=== PATIENT | female | born 1965 | race Caucasian/White ===

== ENCOUNTER 2019-12-14 14:50 | Emergency (ER) | payer OTHER ==
[~2019-12-14] VITALS: Ht 165.1 cm; Wt 137.9 kg
[~2019-12-14 14:50] MED LIST: ASPIRIN EC81 M1 PO; BYDUREON2 MG SQ; CIPRO500 MG PO; ELIQUIS5 MG PO; FLEXERIL PO; GLUCOTROL XL5 MG PO; HUMALOG100 UNIT/1 SUBQ; HYDROCHLOROTHIA25 M1 PO; HYDROCODONE-AP1 EAC6 PO; LEVEMIR SUBQ; NAPROSYN500 MG PO; PERCOCET 5-3251 EACH PO; XARELTO15 MG PO; XARELTO20 MG PO
[2019-12-14 16:18] LABS: ABSOLUTE BASOPHILS 0.1 thou/uL (0.0-0.2); ABSOLUTE EOSINOPHILS 0.1 thou/uL (0.0-0.7); ABSOLUTE LYMPHOCYTES 1.1 thou/uL (0.8-5.3); ABSOLUTE MONOCYTES 0.6 thou/uL (0.0-1.2); BASOPHILS 1.5 %; EOSINOPHILS 1.5 %; HEMATOCRIT 40.9 % (37.0-47.0); HEMOGLOBIN 13.8 gm/dL (12.0-15.0); LYMPHOCYTES 14.1 %; MCH 32.7 pg (26.0-34.0); MCHC 33.9 g/dL (28.0-37.0); MCV 96.4 fL (80.0-100.0); MONOCYTES 7.1 %; MPV 7.9 fl. (7.2-11.1); NUCLEATED RBCS 0 /100WBC; PLATELET COUNT* 192 thou/uL (150-400); POLYS 75.8 %; RBC 4.24 mil/uL (4.20-5.00); RDW-CV 15.4 % (10.5-14.5); WBC 7.9 thou/uL (4.0-11.0)
[2019-12-14 16:25] LABS: CREATININE 0.9 mg/dL (0.6-1.3); POTASSIUM 4.9 mmol/L (3.5-5.1)
[2019-12-14 16:30] LABS: ALBUMIN 3.4 g/dL (3.4-5.0); APTT 22.2 Seconds (25.0-31.3); PROTIME 10.2 Seconds (9.20-11.50); TOTAL PROTEIN 7.6 g/dL (6.4-8.2)
[2019-12-14] MEDS ORDERED: PREDNISONE 10 M10 MG PO (18:54)
[2019-12-14] MEDS ORDERED: NORCO 5-325 TA1 EAC1 PO (18:54)
[2019-12-14] MEDS ORDERED: BACTRIM DS TAB1 EACH PO (18:54)
[2019-12-14 19:11] VITALS: BP 120/70
--- NOTE | 2019-12-15 12:15 | EKG ---
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 : 1965 Requested By: Yesi Mcgill Order Number: [id number] MD: Ariel To Measurements Intervals [place] Rate: 99 P: 9 IA: 172 QRS: -32 QRSD: 79 T: 0 QT: 320 QTc: 411 Interpretive Statements Sinus rhythm Probable left atrial enlargement Inferior infarct, old Consider anterior infarct Compared to ECG 07/28/2015 10:51:37 Sinus tachycardia no longer present Myocardial infarct finding still present Electronically Signed On 12-15-2019 12:13:17 CDT by Areil To [email or web address] <ELECTRONICALLY SIGNED> By: Ariel To MD, [facility] 12/15/19 1213 1753 1753 Ariel To MD, [facility] /EPI
== END 2019-12-14 19:13 | disposition home or self-care (01) ==
LOC: M.ERS 14:50
PROVIDERS: Nurse Practitioner Family
DX: I80.8 Phlebitis and thrombophlebitis of other sites (principal); E11.9 Type 2 diabetes mellitus without complications

== ENCOUNTER 2019-12-15 21:16 | Emergency (ER) | payer OTHER ==
[~2019-12-15] VITALS: Ht 165.1 cm; Wt 137.4 kg
[~2019-12-15 21:16] MED LIST changes: +BACTRIM DS TAB1 EACH PO; +NORCO 5-325 TA1 EAC1 PO; +PREDNISONE 10 M10 MG PO
[2019-12-15 23:29] LABS: HEMATOCRIT 41.5 % (37.0-47.0); HEMOGLOBIN 14.2 gm/dL (12.0-15.0); MCHC 34.1 g/dL (28.0-37.0); MCV 96.7 fL (80.0-100.0); MPV 8.1 fl. (7.2-11.1); NUCLEATED RBCS 0 /100WBC; PLATELET COUNT* 196 thou/uL (150-400); RDW-CV 15.6 % (10.5-14.5); WBC 9.8 thou/uL (4.0-11.0)
[2019-12-15 23:40] LABS: CALCIUM 9.1 mg/dL (8.5-10.1); CREATININE 1.2 mg/dL (0.6-1.3); POTASSIUM 4.8 mmol/L (3.5-5.1)
[2019-12-15 23:41] LABS: APTT 24.3 Seconds (25.0-31.3); PROTIME 10.5 Seconds (9.20-11.50)
[2019-12-15 23:47] LABS: ALBUMIN 3.5 g/dL (3.4-5.0); TOTAL BILIRUBIN 0.9 mg/dL (<0.1-1.0)
[2019-12-16 01:13] VITALS: BP 125/75
[2019-12-16 01:37] LABS: ABSOLUTE LYMPHOCYTES 0.8 thou/uL (0.8-5.3); ABSOLUTE MONOCYTES 0.6 thou/uL (0.0-1.2); ABSOLUTE NEUTROPHILS 8.4 thou/uL (1.6-8.1); PLATELET ESTIMATE ADEQUATE
[2019-12-16 01:38] LABS: ANISOCYTOSIS 1+
== END 2019-12-16 01:15 | disposition home or self-care (01) ==
LOC: M.ERS 21:16
PROVIDERS: Emergency Medicine Emergency Medical Services
DX: M79.89 Other specified soft tissue disorders (principal); R22.1 Localized swelling, mass and lump, neck; E11.9 Type 2 diabetes mellitus without complications; Z86.718 Personal history of other venous thrombosis and embolism; Z90.710 Acquired absence of both cervix and uterus; Z85.42 Personal history of malignant neoplasm of other parts of uterus; Z79.4 Long term (current) use of insulin

== ENCOUNTER → 2019-12-18 | Outpatient (CLI) | payer OTHER | LOC: M.ULTRA 09:55 | PROVIDERS: ATTEND Registered Nurse Diabetes Educator | DX: R22.9 Localized swelling, mass and lump, unspecified (principal) ==

== ENCOUNTER → 2021-01-27 | Outpatient (CLI) | payer OTHER | LOC: M.ULTRA 07:21 | PROVIDERS: ATTEND Registered Nurse Diabetes Educator | DX: R16.0 Hepatomegaly, not elsewhere classified (principal); K80.20 Calculus of gallbladder without cholecystitis without obstruction; N28.1 Cyst of kidney, acquired ==

== ENCOUNTER 2021-02-21 16:02 | Inpatient (IN) | payer OTHER ==
[~2021-02-21] VITALS: Ht 165.1 cm; Wt 141.3 kg
[2021-02-21 16:17] VITALS: BP 112/56
[2021-02-21] MEDS ORDERED: ELIQUIS5 MG PO (16:20)
[2021-02-21] MEDS ORDERED: OZEMPIC1 MG/0.71 SUBQ (16:20)
[2021-02-21] MEDS ORDERED: VITAMIN D31250 MCG PO (16:20)
[2021-02-21 17:46] LABS: ABSOLUTE LYMPHOCYTES 0.7 thou/uL (0.8-5.3); ABSOLUTE MONOCYTES 0.3 thou/uL (0.0-1.2); ABSOLUTE NEUTROPHILS 2.6 thou/uL (1.6-8.1); BASOPHILS 0.2 %; HEMATOCRIT 38.7 % (37.0-47.0); HEMOGLOBIN 12.9 gm/dL (12.0-15.0); LYMPHOCYTES 19.1 %; MCH 28.8 pg (26.0-34.0); MCHC 33.3 g/dL (28.0-37.0); MCV 86.4 fL (80.0-100.0); MONOCYTES 8.1 %; MPV 8.2 fl. (7.2-11.1); NUCLEATED RBCS 0 /100WBC; PLATELET COUNT* 121 thou/uL (150-400); POLYS 72.6 %; RBC 4.48 mil/uL (4.20-5.00); RDW-CV 14.5 % (10.5-14.5); WBC 3.6 thou/uL (4.0-11.0)
[2021-02-21 17:46] LABS: BE -1.3 mmol/L (-2 to +3); PCO2 32.8 mmHg (35.0-45.0); pH 7.445 (7.340-7.450)
[2021-02-21 17:48] LABS: PO2 56.6 mmHg (75.0-100.0)
[2021-02-21 17:55] LABS: CALCIUM 7.9 mg/dL (8.5-10.1); CREATININE 1.1 mg/dL (0.6-1.3); POTASSIUM 3.8 mmol/L (3.5-5.1)
[2021-02-21 17:59] LABS: ALBUMIN 3.1 g/dL (3.4-5.0); TOTAL BILIRUBIN 0.7 mg/dL (<0.1-1.0); TOTAL PROTEIN 6.7 g/dL (6.4-8.2)
[2021-02-21 22:00] VITALS: BP 115/75
[2021-02-22] VITALS (7 sets, daily range): BP systolic 109–116; BP diastolic 66–78
--- NOTE | 2021-02-22 10:51 | EKG ---
[place] [address] ELECTROCARDIOGRAM REPORT Name: LEONARDARMANI MICHELLE Room: [place] [address] ADM IN [facility]#: [id number] Admission: 02/21/21 Attend Phys: Chapin Santana Discharge: Date of : 61 Date of Service: 02/21/21 174 Report #: [id number] THIS REPORT FOR: //name// [facility] ED Test Date: 2021-02-21 Test Time: 17:41:51 Pat Name: ARMANI VALLE Department: Room: [facility] Gender: F Naval Architect: ILIANA : 1965 Requested By: Sin Galicia Order Number: [id number] MD: Ariel To Measurements Intervals [place] Rate: 101 P: 6 UT: 161 QRS: -45 QRSD: 97 T: 11 QT: 322 QTc: 418 Interpretive Statements Sinus tachycardia Left anterior fascicular block Consider anterior infarct Compared to ECG 12/14/2019 17:53:43 Sinus rhythm no longer present Myocardial infarct finding still present Electronically Signed On 02-22-2021 10:51:13 CDT by Ariel To [email or web address] <ELECTRONICALLY SIGNED> By: Ariel To MD, [facility] 02/22/21 1051 174 174 Ariel To MD, [facility] /EPI
[2021-02-23] VITALS (7 sets, daily range): BP systolic 115–143; BP diastolic 71–83
[2021-02-23 10:16] LABS: HEMATOCRIT 40.5 % (37.0-47.0); HEMOGLOBIN 13.3 gm/dL (12.0-15.0); MCH 28.7 pg (26.0-34.0); MCHC 32.9 g/dL (28.0-37.0); MCV 87.1 fL (80.0-100.0); MPV 8.8 fl. (7.2-11.1); NUCLEATED RBCS 0 /100WBC; PLATELET COUNT* 140 thou/uL (150-400); RBC 4.65 mil/uL (4.20-5.00); RDW-CV 14.4 % (10.5-14.5); WBC 8.3 thou/uL (4.0-11.0)
[2021-02-23 10:29] LABS: CALCIUM 8.7 mg/dL (8.5-10.1); CREATININE 0.8 mg/dL (0.6-1.3); MAGNESIUM 2.5 mg/dL (1.8-2.4); POTASSIUM 4.2 mmol/L (3.5-5.1); TOTAL BILIRUBIN 0.7 mg/dL (<0.1-1.0); TOTAL PROTEIN 6.9 g/dL (6.4-8.2)
[2021-02-23 10:33] LABS: ABSOLUTE LYMPHOCYTES 0.3 thou/uL (0.8-5.3); ABSOLUTE MONOCYTES 0.1 thou/uL (0.0-1.2); ABSOLUTE NEUTROPHILS 7.9 thou/uL (1.6-8.1); PLATELET ESTIMATE DECREASED
[2021-02-23 10:34] LABS: ANISOCYTOSIS 1+; POIKILOCYTOSIS 1+
--- NOTE | 2021-02-23 17:50 | NUR ---
RECEIVED REPORT FROM DHARMESH MASSEY. PT ARRIVED ON UNIT AROUND 1108. ADMIT DONE. VS CHARTED. IV INTACT. HEART MONITOR ATTACHED AT SR. MEDS GIVEN PER SEP. PT ROOM AIR WHILE RESTING. UP IN CHAIR. NO PAIN THIS SHIFT. CALL LIGHT WITH IN REACH. WILL CONTINUE TO MONITOR.
[2021-02-24 00:30] VITALS: BP 122/73
[2021-02-24 04:16] VITALS: BP 131/79
[2021-02-24 07:57] VITALS: BP 137/84
--- NOTE | 2021-02-24 08:05 | NUR ---
PATIENT HAS SLEPT WELL THROUGHOUT MOST OF THE NIGHT. VSS ON 2L 02 VIA NASAL CANNULA. PATIENT PLACED ON OXYGEN D/T LOW OXYGEN SATURATION OF 89% ON RA. PATIENT STATES THAT SHE DOES GET SOA UPON EXERTION. MEDICATIONS GIVEN ORDERED AND CHARTED. PATIENT COUGHING QUITE A BIT THIS AM. REPORT GIVEN TO DAY NURSE NICK REGARDING POSSIBLY GETTING ORDER FOR COUGH SUPPRESSENT/EXPECTORANT FROM DR. PERES IN RIGHT HAND-SL. PATIENT INSTRUCTED TO USE CALL LIGHT WHEN NEEDING ASSISTANCE. HOURLY ROUNDS MADE. WILL CONTINUE WITH PLAN OF CARE AND NURSING TO MONITOR.
[2021-02-24 12:00] VITALS: BP 129/77
--- NOTE | 2021-02-24 13:19 | NUR ---
Pt is A&O. Resides at home with . Independent. No DME. No hx of HH or SNF. Goal is home at dc. Pt on 2L o2, plan ex ox. Pt may dc to home pending ex ox, CM following.
[2021-02-24 16:23] VITALS: BP 149/95
[2021-02-24 17:43] LABS: ABSOLUTE BASOPHILS 0.1 thou/uL (0.0-0.2); ABSOLUTE LYMPHOCYTES 0.4 thou/uL (0.8-5.3); ABSOLUTE MONOCYTES 0.4 thou/uL (0.0-1.2); ABSOLUTE NEUTROPHILS 9.5 thou/uL (1.6-8.1); BASOPHILS 0.6 %; EOSINOPHILS 0.1 %; HEMOGLOBIN 13.6 gm/dL (12.0-15.0); LYMPHOCYTES 3.8 %; MCH 28.9 pg (26.0-34.0); MCHC 33.2 g/dL (28.0-37.0); MCV 86.9 fL (80.0-100.0); MONOCYTES 3.9 %; MPV 8.7 fl. (7.2-11.1); NUCLEATED RBCS 0 /100WBC; PLATELET COUNT* 165 thou/uL (150-400); POLYS 91.6 %; RBC 4.72 mil/uL (4.20-5.00); RDW-CV 14.5 % (10.5-14.5); WBC 10.4 thou/uL (4.0-11.0)
[2021-02-24 18:06] LABS: ALBUMIN 2.9 g/dL (3.4-5.0); CALCIUM 8.9 mg/dL (8.5-10.1); CREATININE 0.8 mg/dL (0.6-1.3); POTASSIUM 4.2 mmol/L (3.5-5.1); TOTAL BILIRUBIN 0.6 mg/dL (<0.1-1.0)
--- NOTE | 2021-02-24 19:12 | NUR ---
RECEIVED REPORT AROUND 0715. ASSUMED CARE. VS AND ASSESSMENT CHARTED. IV INTACT. HEART MONITOR ATTACHED AT SR. MEDS GIVEN PER SEP. HOURLY ROUNDING PERFORMED. PT MOVED FROM 113 TO 116 FOR NEGATIVE PRESSURE. NO PAIN THIS SHIFT. CALL LIGHT WITH IN REACH.
[2021-02-24 20:20] VITALS: BP 142/82
--- NOTE | 2021-02-24 22:39 | CON ---
[address] [address] CONSULTATION Name: ARMANI VALLE Room: [address] IN M.R.#: [id number] Admission: 02/21/21 Attend Phys: Licha Azul Discharge: Date of : 61 Report #: [id number] THIS REPORT FOR: cc: Vidya Jones Tammy RNP Pervez, Adeel MD ~ DATE OF CONSULTATION: 02/24/2021 REQUESTING PHYSICIAN: Chapin Santana MD INDICATION FOR CONSULTATION: Acute hypoxemic respiratory failure secondary to COVID-19. HISTORY OF PRESENT ILLNESS: A 56-year-old female with past medical history as mentioned below. This does include a history of a DVT. She is reported to have had an IVC filter. It is not fully apparent to me as to whether the patient was on Eliquis or aspirin at home. She also does have diabetes. She has not been vaccinated for COVID-19. The patient has had shortness of breath as well as cough for about a week and 5 days ago, she tested positive for COVID-19. She also reported having nausea, fever, chills as well as decreased taste and smell. She says that she was feeling funny when she was standing up. She checked her O2 saturation at home and found it to be 88% and therefore eventually came to the emergency room here. Initially, she was requiring around 2 liters of oxygen to maintain O2 saturation in the low 90s. There is an increase in her oxygen needs. Currently, she is on 15 liters, she is saturating around 95%. She does report increasing shortness of breath as well. She is afebrile. Her body mass index is elevated to 49. REVIEW OF SYSTEMS: For 12 points is negative except as mentioned above. PAST MEDICAL HISTORY: Diabetes, on insulin, DVT, right leg, status post hysterectomy for cancer, lap band surgery, broken left foot/ankle, uterine cancer. SOCIAL HISTORY: Lifetime nonsmoker, uses alcohol, but there is no known history of excessive alcohol use. No known history of illegal drug use. CURRENT MEDICATIONS: List in [place] reviewed. HOME MEDICATIONS: List in [place] reviewed. Also, see discussion above. FAMILY HISTORY: No pertinent [place] [address] CONSULTATION Name: ARMANI VALLE Room: [address]#: [id number] Admission: 02/21/21 Attend Phys: Licha Azul Discharge: Date of : 61 Report #: [id number] ALLERGIES: No known drug allergies. PHYSICAL EXAMINATION: GENERAL: She was alert, awake and oriented, did not appear to be in any distress. VITAL SIGNS: Pulse of 86 and a blood pressure of 149/95, saturating 95%. She is on 15 liters oxygen via nasal cannula. Respiratory rate is 20. She is afebrile. Body mass index is 49. HEENT: Head is normocephalic and atraumatic. Pupils are equal, does appear to have a narrow airway. NECK: Does not show raised JVP asymmetry, mass or lymph nodes. CHEST: Symmetrical expansion on inspection and palpation. On auscultation, breath sounds are bilaterally equal, but decreased. I do not hear any added sounds. HEART: Regular. There is no murmur. ABDOMEN: Soft and nontender. EXTREMITIES: Lower extremities show trace edema, but there is significant chronic venous insufficiency. There are varicose veins noted. Skin, however, is dry and intact. NEUROLOGIC: Moves all extremities bilaterally equally and spontaneously with no focal deficit identified. LABORATORY DATA: The patient's chest x-ray is repeated and it does show worsening in previously seen pulmonary infiltrates. The patient's lab work is in [place] and this is reviewed. ASSESSMENT AND PLAN: 1. Acute hypoxemic respiratory failure secondary to COVID-19. Recommend transferring the patient to a negative pressure room as it appears highly likely that she has obstructive sleep apnea, I would recommend BiPAP while asleep and p.r.n. I will also go ahead and start her on Brovana. The patient was given instructions regarding avoiding sleeping supine, out of bed to chair as tolerated. 2. COVID-19. For now, I kept the dexamethasone dose at 6 mg. We will evaluate response to other measures today. If her oxygen needs increase or fail to improve, then I will be inclined to increase dexamethasone dose later today or tomorrow. Recommend starting remdesivir. I explained risks and benefits of convalescent plasma to the patient. She was reluctant and therefore, I did not insist upon it. The patient likely will benefit from Actemra. Unfortunately, we do not have Actemra available at this time. 3. Pulmonary infiltrates. I would also broaden antibiotic coverage to doxycycline and ceftriaxone. More cultures and serologies are ordered. 4. Fluid overload. I will go ahead and give her one dose of Lasix now and one in the morning and follow response. [address] [address] CONSULTATION Name: ARMANI VALLE Room: [address] IN M.R.#: [id number] Admission: 02/21/21 Attend Phys: Licha Azul Discharge: Date of : 61 Report #: [id number] 5. History of deep venous thrombosis. We will clarify as to whether the patient was on Eliquis at home. She is on Eliquis now. If not on Eliquis at home, then certainly it will be possible that she had thromboembolism now and we will work it up. Meanwhile, she is on Eliquis. We will also do an x-ray of the abdomen to verify that she has an inferior vena cava filter. 6. Morbid obesity/strongly suspected obstructive sleep apnea, see discussion above. 7. Gastrointestinal prophylaxis, on Pepcid. 8. Diabetes. Glucose are on the higher side. May need an increase in insulin sliding scale. I would defer to the primary service. 9. Clostridium difficile prophylaxis, Lactinex. Thanks for this consultation. <ELECTRONICALLY SIGNED> By: Israel Gonzáles MD 02/24/21 2239 1731 Akaterin Gonzáles MD /nt
[2021-02-25 00:35] VITALS: BP 115/70
[2021-02-25 04:54] VITALS: BP 100/67
[2021-02-25 05:31] LABS: CALCIUM 8.7 mg/dL (8.5-10.1); CREATININE 0.9 mg/dL (0.6-1.3); MAGNESIUM 2.2 mg/dL (1.8-2.4); POTASSIUM 3.9 mmol/L (3.5-5.1)
--- NOTE | 2021-02-25 06:43 | NUR ---
PATIENT HAS BEEN RESTLESS OFF AND ON DURING THE NIGHT. VSS ON BIPAP AT 50% FIO2. PATIENT HAS VERBALIZED NOT LIKING TO WEAR THE BIPAP AND WAS REFUSING TO WEAR IT AT TIMES. PATIENT WAS PLACED ON NON REBREATHER AND HIGH FLOW NASAL CANNULA AT 15L BUT 02 SATURATION WAS STILL DIPPING DOWN AT TIMES TO 70'S AND LOW 80'S. PATIENT ENCOURAGED TO WEAR BIPAP AGAIN. PATIENT STATES "I CAN'T DO ANYTHING AND I CAN'T SLEEP". NURSE TALKED TO PATIENT AND EDUCATED HER ON THE USE OF THE BIPAP AND WHY SHE NEEDS TO TRY TO WEAR IT. PATIENT UP WITH SBA TO THE BSC AND GETS VERY SOA UPON EXERTION. PATIENT GIVEN MEDICATION FOR ANXIETY THIS AM AND PLACE BACK ON BIPAP. IV IN RIGHT HAND-SL. PATIENT INSTRUCTED TO USE CALL LIGHT WHEN NEEDING ASSISTANCE. HOURLY ROUNDS MADE. WILL CONTINUE WITH PLAN OF CARE AND NURSING TO MONITOR.
[2021-02-25 08:00] VITALS: BP 107/72
--- NOTE | 2021-02-25 13:55 | NUR ---
Nutrition: Pt admitted to COVID unit. Assessed for high BMI. Wt: 294#. CHO controlled diet. PMHx: DM, OBE. Pt gets SOA upon exertion. Meds: remdesivir, vit D, C, B1, albuterol. BG 226-303, alb 2.9. No meal intake % recorded. Pt doesn't like bipap, but desats when off it. Consider mild nutrition risk at this time. Please reocrd meal intake %.
--- NOTE | 2021-02-25 15:16 | NUR ---
Anticipate dc in a few days. Covid positive. Remains on bipap.
[2021-02-25 16:31] VITALS: BP 120/71
--- NOTE | 2021-02-25 18:38 | NUR ---
RECEIVED REPORT AROUND 0715. ASSUMED CARE. VS AND ASSESSMENT CHARTED. IV INTACT RIGHT HAND. HEART MONITOR ATTACHED AT SR. MEDS GIVEN PER SEP. HOURLY ROUNDING PERFORMED. ISOLATION INTACT. BIPAP TOLERATED. HEATED HI FLOW DURING MEALS. NO PAIN THIS SHIFT. CALL LIGHT WITH IN REACH. WILL CONTINUE TO MONITOR.
[2021-02-25 20:15] VITALS: BP 97/62
[2021-02-26 00:05] VITALS: BP 101/64
[2021-02-26 03:58] VITALS: BP 103/66
[2021-02-26 04:33] LABS: ABSOLUTE LYMPHOCYTES 0.4 thou/uL (0.8-5.3); ABSOLUTE MONOCYTES 0.3 thou/uL (0.0-1.2); ABSOLUTE NEUTROPHILS 5.3 thou/uL (1.6-8.1); BASOPHILS 0.2 %; HEMATOCRIT 41.6 % (37.0-47.0); HEMOGLOBIN 13.7 gm/dL (12.0-15.0); LYMPHOCYTES 6.6 %; MCH 28.5 pg (26.0-34.0); MCHC 32.8 g/dL (28.0-37.0); MCV 86.9 fL (80.0-100.0); MONOCYTES 5.4 %; MPV 8.8 fl. (7.2-11.1); NUCLEATED RBCS 0 /100WBC; PLATELET COUNT* 175 thou/uL (150-400); POLYS 87.8 %; RBC 4.79 mil/uL (4.20-5.00); RDW-CV 14.5 % (10.5-14.5); WBC 6.1 thou/uL (4.0-11.0)
[2021-02-26 04:52] LABS: ALBUMIN 2.6 g/dL (3.4-5.0); CALCIUM 8.7 mg/dL (8.5-10.1); CREATININE 0.9 mg/dL (0.6-1.3); MAGNESIUM 2.2 mg/dL (1.8-2.4); POTASSIUM 4.3 mmol/L (3.5-5.1); TOTAL BILIRUBIN 0.5 mg/dL (<0.1-1.0); TOTAL PROTEIN 6.8 g/dL (6.4-8.2)
--- NOTE | 2021-02-26 07:09 | NUR ---
PT SLEPT FAIRLY WELL OVERNIGHT. TOLERATED BIPAP WELL AND HAS WORN IT ALL NIGHT. HS ACCUCHECK 311, INSULIN GIVEN ORDERED. AM LABS. MRSA NASAL SWAB SENT TO LAB OVERNIGHT. R HAND SL.TAKES PILLS ONE AT A TIME REMOVING BIPAP BRIEFLY. ABLE TO USE CALL LITE AND MAKE NEEDS KNOWN.
[2021-02-26 07:30] VITALS: BP 113/80
[2021-02-26 13:18] VITALS: BP 97/64
--- NOTE | 2021-02-26 15:01 | NUR ---
No weekend dc planned. On bipap 15L 90% fio2.
[2021-02-26 16:00] VITALS: BP 96/68
--- NOTE | 2021-02-26 16:31 | NUR ---
PT REMAINED ALERT AND ORIENTED. PT ABLE TO TOLERATE HEATED HIGH FLOW FOR 3 HOURS DURING SHIFT BEFORE NEEDING TO GO BACK ON BIPAP. FALL RISK PRECAUTIONS IN PLACE. HOURLY ROUNDING COMPLETED. CALL LIGHT WITHIN REACH.
[2021-02-26 20:00] VITALS: BP 94/61
[2021-02-27 00:12] VITALS: BP 135/78
[2021-02-27 04:25] VITALS: BP 101/61
[2021-02-27 05:00] LABS: ABSOLUTE LYMPHOCYTES 0.6 thou/uL (0.8-5.3); ABSOLUTE MONOCYTES 0.5 thou/uL (0.0-1.2); ABSOLUTE NEUTROPHILS 7.8 thou/uL (1.6-8.1); BASOPHILS 0.2 %; HEMATOCRIT 42.3 % (37.0-47.0); HEMOGLOBIN 13.9 gm/dL (12.0-15.0); LYMPHOCYTES 6.6 %; MCH 28.6 pg (26.0-34.0); MCV 86.6 fL (80.0-100.0); MONOCYTES 5.8 %; MPV 8.9 fl. (7.2-11.1); NUCLEATED RBCS 0 /100WBC; PLATELET COUNT* 224 thou/uL (150-400); POLYS 87.4 %; RBC 4.88 mil/uL (4.20-5.00); RDW-CV 14.3 % (10.5-14.5); WBC 8.9 thou/uL (4.0-11.0)
--- NOTE | 2021-02-27 05:21 | NUR ---
ASSUMED PT CARE AT APPROX 1930. PT IS AWAKE AND ORIENTED X4. PT IS TRACING SR ON THE PATTERN WHEEL MAKER. PT IS ON THE BIPAP WITH 90% FIO2, NO DESATURATIONS NOTED. PT DENIES PAIN BUT IS ANXIOUS, ANXIETY MEDICINE GIVEN PER MAR. PT IS ABLE TO REST MOST OF THE NIGHT. NO ACUTE CHANGES THIS SHIFT. CALL LIGHT WITHIN REACH. HOURLY ROUNDING DONE FOR PT SAFETY.
[2021-02-27 05:24] LABS: ALBUMIN 2.7 g/dL (3.4-5.0); CALCIUM 8.9 mg/dL (8.5-10.1); MAGNESIUM 2.3 mg/dL (1.8-2.4); TOTAL BILIRUBIN 0.6 mg/dL (<0.1-1.0); TOTAL PROTEIN 6.9 g/dL (6.4-8.2)
[2021-02-27 08:11] VITALS: BP 93/63
[2021-02-27 12:13] VITALS: BP 124/78
[2021-02-27 16:37] VITALS: BP 139/79
--- NOTE | 2021-02-27 18:11 | NUR ---
PT A/OX4, ON BIPAP AND HEATED HI-FLOW THIS SHIFT, HR NSR ON TELE. PT HAS BEEN UP IN HER RECLINER MOST OF THE SHIFT, EDUCATED ON USING THE INCENTIVE SPIROMETER AND DEEP BREATHING.
[2021-02-27 20:00] VITALS: BP 122/74
[2021-02-28 00:33] VITALS: BP 104/62
[2021-02-28 04:00] VITALS: BP 89/50
--- NOTE | 2021-02-28 05:04 | NUR ---
ASSUMED PT CARE AT APPROX 1911. PT IS AWAKE AND ORIENTED X4. PT IS TRACING SR/SB ON THE LACTATION SPECIALIST. PT IS SHORT OF AIR WITH ACTIVITY, spO2 IS BETWEEN 95-100% ON THE BIPAP/ FIO2 100%. NO ACUTE CHANGES THIS SHIFT. PT IS ENCOURAGED TO DO DEEP BREATHING EXCERCISES AND TO LAY ON HER SIDE/PRONE TOLERATED. CALL LIGHT WITHIN REACH. PT IS CLOSELY MONITORED, FALL PRECAUTIONS IN PLACE.
[2021-02-28 08:55] VITALS: BP 89/60
[2021-02-28 10:11] LABS: CALCIUM 8.6 mg/dL (8.5-10.1); CREATININE 0.8 mg/dL (0.6-1.3)
[2021-02-28 12:00] VITALS: BP 106/64
[2021-02-28 16:00] VITALS: BP 100/63
--- NOTE | 2021-02-28 19:17 | NUR ---
PT A/0X4, HR NSR, ON BIPAP, VSS, NO C/O PAIN OR DISCOMFORT VOICED THIS SHIFT, PT HAD A LARGE BM, UP TO BSC SBA.
[2021-02-28 20:00] VITALS: BP 103/72
[2021-03-01] VITALS: BP 139/72
[2021-03-01 04:00] VITALS: BP 102/64
[2021-03-01 04:31] LABS: ALBUMIN 2.3 g/dL (3.4-5.0); CALCIUM 8.4 mg/dL (8.5-10.1); CREATININE 0.9 mg/dL (0.6-1.3); TOTAL BILIRUBIN 0.5 mg/dL (<0.1-1.0)
--- NOTE | 2021-03-01 05:45 | NUR ---
ASSUMED PT CARE AT APPROX 1911. PT IS AWAKE AND ORIENTED X4. PT IS TRACING SR/SB ON THE TRUCK CAR AND BUS CLEANER. PT IS SHORT OF AIR WITH ACTIVITY, spO2 IS BETWEEN 95-100% ON THE BIPAP/ FIO2 100%. NO ACUTE CHANGES THIS SHIFT. PT IS ENCOURAGED TO DO DEEP BREATHING EXCERCISES AND TO LAY ON HER SIDE/PRONE TOLERATED. CALL LIGHT WITHIN REACH. PT IS CLOSELY MONITORED, FALL PRECAUTIONS IN PLACE.
[2021-03-01 08:00] VITALS: BP 89/61
[2021-03-01 12:00] VITALS: BP 93/65
--- NOTE | 2021-03-01 14:37 | NUR ---
Pt on bipap 100%, continue aggressive care
[2021-03-01 16:13] VITALS: BP 121/76
[2021-03-01 20:00] VITALS: BP 125/80
[2021-03-02 00:45] VITALS: BP 137/76
--- NOTE | 2021-03-02 04:31 | NUR ---
ASSUMED PT CARE AT APPROX. 1930. PT IS A/OX4. PT IS TRACING SR ON RN EMPLOYEE [employer]. VSS. PT ON BIPAP, SEE DOCUMENTATION FOR SETTINGS. NO ACUTE CHANGES THIS SHIFT. MEDICATIONS ADMINISTERED PRESCRIBED. FALL PRECAUTIONS IN PLACE FOR SAFETY. CALL LIGHT WITHIN REACH. WILL CONT. TO MONITOR.
[2021-03-02 05:12] VITALS: BP 106/58
[2021-03-02 08:00] VITALS: BP 97/65
[2021-03-02 08:46] LABS: HEMATOCRIT 41.1 % (37.0-47.0); HEMOGLOBIN 13.7 gm/dL (12.0-15.0); MCH 28.7 pg (26.0-34.0); MCHC 33.3 g/dL (28.0-37.0); MCV 86.3 fL (80.0-100.0); MPV 8.9 fl. (7.2-11.1); NUCLEATED RBCS 0 /100WBC; PLATELET COUNT* 184 thou/uL (150-400); RBC 4.76 mil/uL (4.20-5.00); RDW-CV 14.3 % (10.5-14.5); WBC 14.1 thou/uL (4.0-11.0)
[2021-03-02 09:02] LABS: ALBUMIN 2.4 g/dL (3.4-5.0); CALCIUM 8.7 mg/dL (8.5-10.1); CREATININE 0.9 mg/dL (0.6-1.3); MAGNESIUM 2.4 mg/dL (1.8-2.4); PHOSPHORUS* 3.4 mg/dL (2.5-4.9); POTASSIUM 3.9 mmol/L (3.5-5.1); TOTAL BILIRUBIN 0.7 mg/dL (<0.1-1.0); TOTAL PROTEIN 6.5 g/dL (6.4-8.2)
[2021-03-02 09:26] LABS: ABSOLUTE LYMPHOCYTES 0.4 thou/uL (0.8-5.3); ABSOLUTE MONOCYTES 0.7 thou/uL (0.0-1.2)
[2021-03-02 09:27] LABS: PLATELET ESTIMATE ADEQUATE
--- NOTE | 2021-03-02 10:50 | NUR ---
The patient is alert. Able to make needs known. Denies CP or SOb. She is sitting on the side of the bed. She has the bipap in place.
[2021-03-02 11:12] VITALS: BP 113/75
--- NOTE | 2021-03-02 14:01 | NUR ---
Pt remains ill. On 55L 80% fio2, continue to wean
[2021-03-02 15:43] VITALS: BP 135/76
[2021-03-02 22:30] VITALS: BP 107/69
[2021-03-03 04:28] VITALS: BP 135/66
[2021-03-03 08:00] VITALS: BP 110/69
--- NOTE | 2021-03-03 11:36 | NUR ---
The patient is alert. Denies CP or SOB. She is sitting in the recliner. She remains on the Bipap. Call light within reach. SR on the monitor. The patient is ad miguel angel to the BSC.
[2021-03-03 12:00] VITALS: BP 119/81
--- NOTE | 2021-03-03 15:29 | NUR ---
Anticipate dc in a few days. Pt on bipap 100% fio2
[2021-03-03 16:09] LABS: ABSOLUTE BASOPHILS 0.1 thou/uL (0.0-0.2); ABSOLUTE LYMPHOCYTES 0.4 thou/uL (0.8-5.3); ABSOLUTE MONOCYTES 0.6 thou/uL (0.0-1.2); ABSOLUTE NEUTROPHILS 16.3 thou/uL (1.6-8.1); BASOPHILS 0.7 %; EOSINOPHILS 0.1 %; HEMATOCRIT 41.9 % (37.0-47.0); HEMOGLOBIN 13.6 gm/dL (12.0-15.0); LYMPHOCYTES 2.1 %; MCH 28.5 pg (26.0-34.0); MCHC 32.4 g/dL (28.0-37.0); MCV 87.9 fL (80.0-100.0); MONOCYTES 3.6 %; NUCLEATED RBCS 0 /100WBC; PLATELET COUNT* 174 thou/uL (150-400); POLYS 93.5 %; RBC 4.77 mil/uL (4.20-5.00); RDW-CV 14.6 % (10.5-14.5); WBC 17.4 thou/uL (4.0-11.0)
[2021-03-03 16:18] LABS: CALCIUM 8.9 mg/dL (8.5-10.1); CREATININE 0.9 mg/dL (0.6-1.3); MAGNESIUM 2.5 mg/dL (1.8-2.4); POTASSIUM 3.9 mmol/L (3.5-5.1)
[2021-03-03 16:26] VITALS: BP 123/67
[2021-03-03 17:48] VITALS: BP 118/73
[2021-03-03 19:45] VITALS: BP 132/84
[2021-03-04] VITALS: BP 150/87
[2021-03-04 04:00] VITALS: BP 116/67
[2021-03-04 04:51] LABS: HEMATOCRIT 43.6 % (37.0-47.0); MCH 28.2 pg (26.0-34.0); MCHC 32.2 g/dL (28.0-37.0); MCV 87.7 fL (80.0-100.0); RBC 4.98 mil/uL (4.20-5.00); RDW-CV 14.7 % (10.5-14.5)
--- NOTE | 2021-03-04 05:04 | NUR ---
ASSUMED CARE OF PT AT 1900. PT IS ALERT AND ORIENED. VSS. PERRLA. PT IS ON 100 PERCENT BIPAP. SPO2 HAS BEEN LOW. PT WAS GIVEN STEROIDS AND LASIX. PT ALSO LAYING PRONE. SPO2 ABOVE 90 PERCENT AT THIS TIME. PT IS IN SINUS RYTHM ON THE TELEMETRY. PT IS RESTING COMFORTABLY IN BED. RESPIRATIONS ARE EVEN AND NONLABORED. WILL CONTINUE TO MONITOR PT.
[2021-03-04 05:25] LABS: ALBUMIN 2.9 g/dL (3.4-5.0); CALCIUM 8.9 mg/dL (8.5-10.1); CREATININE 0.9 mg/dL (0.6-1.3); MAGNESIUM 2.3 mg/dL (1.8-2.4); POTASSIUM 3.3 mmol/L (3.5-5.1); TOTAL BILIRUBIN 0.7 mg/dL (<0.1-1.0); TOTAL PROTEIN 6.8 g/dL (6.4-8.2)
[2021-03-04 08:00] VITALS: BP 103/64
[2021-03-04 12:00] VITALS: BP 97/65
--- NOTE | 2021-03-04 14:01 | NUR ---
The patient is alert. Able to make needs known. Denies SOB or CP. The patient was unable to take the potassium tablets and wanted infused via IV. The patient is on the bipap and sits on the side of the bed to eat. She lays on her side when in the bed.
[2021-03-04 14:22] LABS: BE 4.1 mmol/L (-2 to +3); PCO2 38.3 mmHg (35.0-45.0); pH 7.478 (7.340-7.450)
[2021-03-04 14:25] LABS: PO2 55.5 mmHg (75.0-100.0)
--- NOTE | 2021-03-04 14:54 | NUR ---
Pt will be inpt for several more days. On bipap 100% fio2
[2021-03-04 15:56] VITALS: BP 136/80
--- NOTE | 2021-03-04 16:20 | NUR ---
Infection Prevention: Per [facility] the patient had a positive Covid PCR test on 02/16/21.
[2021-03-04 19:30] LABS: CALCIUM 9.1 mg/dL (8.5-10.1); CREATININE 1.1 mg/dL (0.6-1.3); POTASSIUM 4.1 mmol/L (3.5-5.1)
[2021-03-04 19:45] VITALS: BP 129/77
[2021-03-05] VITALS (17 sets, daily range): BP systolic 85–134; BP diastolic 50–75
--- NOTE | 2021-03-05 00:55 | NUR ---
AT START OF SHIFT PT WAS SATTING IN LOW 80s UPPER 70s, SHE WAS LYING IN BED IN A POSITION. I LOWERED HOB AND REQUESTED PT TO STRETCH OUT TO GET MORE OXYGEN. SHE WAS ON BIPAP. PT MOVED UP BUT ON HER RT SIDE STILL CURLED UP. RT TRIED TO GET PT TO ROLL TO BACK AND STRETCH OUT BUT SHE REFUSED WITH SATS STILL IN LOW 80s. RT REQUESTED I CALL RACHEL CHAVEZ TO SEE WHAT HIS LOW LIMIT ON SAT WAS BEFORE INTUBATION. DR PEREZ PAGED AND RETURNED CALL, STATING TO TRY TO GET PT INTO RECLINER AND SIT HER UPRIGHT TO SEE IF THIS WOULD HELP IMPROVE SATS. 40 ADDITIONAL LASIX ADMINISTERED AND PT SATS WERE IMPROVED TO HIGH 80s AND LOW 90s.
--- NOTE | 2021-03-05 09:42 | NUR ---
PT INTUBATED AT [address] SUMENR (ANESTHESIOLOGIST); ETOMIDATE 10MG AND ROCURONIUM 50MG GIVEN FOR SEDATION. 7.5 ETT TAPED 23CM AT THE LIP. POSITIVE COLOR CHANGE ON CO2 DETECTOR IMMEDIATELY FOLLOWING TUBE PLACEMENT. LUNG SOUNDS AUSCULTATED BILATERALLY. OG TUBE PLACED, TAPED TO ETT AT 52CM. AUSCULTATION OF AIR FLOW INTO STOMACH, POSITIVE GASTRIC CONTENTS ASPIRATED.
[2021-03-05 10:11] LABS: BE 1.7 mmol/L (-2 to +3); PCO2 38.4 mmHg (35.0-45.0); PO2 76.6 mmHg (75.0-100.0); pH 7.443 (7.340-7.450)
[2021-03-05 10:48] LABS: ABSOLUTE BASOPHILS 0.1 thou/uL (0.0-0.2); ABSOLUTE LYMPHOCYTES 0.4 thou/uL (0.8-5.3); ABSOLUTE NEUTROPHILS 16.3 thou/uL (1.6-8.1); BASOPHILS 0.4 %; HEMATOCRIT 42.8 % (37.0-47.0); HEMOGLOBIN 13.9 gm/dL (12.0-15.0); LYMPHOCYTES 2.4 %; MCH 28.4 pg (26.0-34.0); MCHC 32.4 g/dL (28.0-37.0); MCV 87.6 fL (80.0-100.0); MONOCYTES 5.4 %; NUCLEATED RBCS 0 /100WBC; PLATELET COUNT* 133 thou/uL (150-400); POLYS 91.8 %; RBC 4.89 mil/uL (4.20-5.00); RDW-CV 14.6 % (10.5-14.5); WBC 17.8 thou/uL (4.0-11.0)
[2021-03-05 11:01] LABS: ALBUMIN 3.1 g/dL (3.4-5.0); CALCIUM 8.8 mg/dL (8.5-10.1); TOTAL PROTEIN 6.7 g/dL (6.4-8.2)
--- NOTE | 2021-03-05 15:06 | NUR ---
Pt intubated and moved to the PACU
[2021-03-05 15:16] LABS: BE 3.2 mmol/L (-2 to +3); PO2 69.1 mmHg (75.0-100.0); pH 7.398 (7.340-7.450)
--- NOTE | 2021-03-05 16:27 | NUR ---
Remains on ventilator, pressure control of 24, rate of 22, Peep of 14, 100% fio2. on far left side with wedge and pillows to suppport. BP has remained stable throughout the day with fentanyl at 50mg/hr and Versed at 3mg per hour. UO has increased since Lasix 6mg given. Had an episode of sao2 decreasing to mid 80's for approxiamately 10 minutes. NT suctioned with minimal secretions. RT notified, Peep increased to 15 and turned to right side. sao2 recovering to low 90's.
[2021-03-05 18:04] LABS: BE 5.9 mmol/L (-2 to +3); PCO2 42.4 mmHg (35.0-45.0); PO2 73.5 mmHg (75.0-100.0); pH 7.471 (7.340-7.450)
[2021-03-06] VITALS (82 sets, daily range): BP systolic 91–186; BP diastolic 54–95
[2021-03-06 05:59] LABS: HEMATOCRIT 41.6 % (37.0-47.0); HEMOGLOBIN 13.8 gm/dL (12.0-15.0); MCH 28.8 pg (26.0-34.0); MCHC 33.1 g/dL (28.0-37.0); MCV 87.2 fL (80.0-100.0); MPV 9.5 fl. (7.2-11.1); NUCLEATED RBCS 0 /100WBC; PLATELET COUNT* 146 thou/uL (150-400); RBC 4.77 mil/uL (4.20-5.00); RDW-CV 14.6 % (10.5-14.5); WBC 17.7 thou/uL (4.0-11.0)
[2021-03-06 06:18] LABS: APTT 28.1 Seconds (25.0-31.3); INR 1.4
[2021-03-06 06:21] LABS: ALBUMIN 2.8 g/dL (3.4-5.0); CALCIUM 8.6 mg/dL (8.5-10.1); MAGNESIUM 2.6 mg/dL (1.8-2.4); POTASSIUM 4.2 mmol/L (3.5-5.1); TOTAL BILIRUBIN 0.9 mg/dL (<0.1-1.0); TOTAL PROTEIN 6.3 g/dL (6.4-8.2)
[2021-03-06 06:27] LABS: PHOSPHORUS* 4.5 mg/dL (2.5-4.9)
[2021-03-06 07:33] LABS: BE 0.8 mmol/L (-2 to +3); PCO2 35.4 mmHg (35.0-45.0); PO2 76.8 mmHg (75.0-100.0); pH 7.454 (7.340-7.450)
[2021-03-06 08:13] LABS: ABSOLUTE LYMPHOCYTES 0.4 thou/uL (0.8-5.3); ABSOLUTE MONOCYTES 0.7 thou/uL (0.0-1.2); ABSOLUTE NEUTROPHILS 16.6 thou/uL (1.6-8.1); PLATELET ESTIMATE DECREASED
--- NOTE | 2021-03-06 08:16 | NUR ---
ASSUMED PATIENT CARE AT 1900. ASSESSMENTS COMPLETED CHARTED. CARDIAC MONITORING IN PLACE. PATIENT HAS SUBCUTANEOUS EMPHYSEMA IN THE UPPER CHEST BLIATERALLY. THE EMPHYSEMA APPEARED LARGER WHEN REASSESSED DURING THE MIDNIGHT ROUNDS. PATIENT O2 SATURATION AND BLOOD PRESSURE STABLE. CHEST XRAY ORDERED AND OBTAINED. DR. PEREZ NOTIFIED, NO NEW ORDERS RECEIVED BUT ORDERED TO INFORM SURGERY. SURGERY INFORMED. AWAITING NEW ORDERS. WILL CONTINUE TO MONITOR.
[2021-03-06 15:29] LABS: BE 1.9 mmol/L (-2 to +3); PCO2 45.8 mmHg (35.0-45.0); PO2 60.3 mmHg (75.0-100.0); pH 7.394 (7.340-7.450)
[2021-03-06 17:24] LABS: CALCIUM 8.9 mg/dL (8.5-10.1); CREATININE 1.1 mg/dL (0.6-1.3); MAGNESIUM 2.7 mg/dL (1.8-2.4); POTASSIUM 4.1 mmol/L (3.5-5.1)
[2021-03-06 18:35] LABS: BE 4.4 mmol/L (-2 to +3); PO2 61.6 mmHg (75.0-100.0); pH 7.407 (7.340-7.450)
[2021-03-07] VITALS (64 sets, daily range): BP systolic 80–206; BP diastolic 42–90
[2021-03-07 05:04] LABS: ABSOLUTE LYMPHOCYTES 0.4 thou/uL (0.8-5.3); ABSOLUTE MONOCYTES 0.8 thou/uL (0.0-1.2); ABSOLUTE NEUTROPHILS 14.9 thou/uL (1.6-8.1); HEMATOCRIT 41.1 % (37.0-47.0); HEMOGLOBIN 13.2 gm/dL (12.0-15.0); LYMPHOCYTES 2.3 %; MCH 28.8 pg (26.0-34.0); MCHC 32.1 g/dL (28.0-37.0); MCV 89.6 fL (80.0-100.0); MONOCYTES 4.9 %; MPV 9.4 fl. (7.2-11.1); NUCLEATED RBCS 0 /100WBC; PLATELET COUNT* 104 thou/uL (150-400); POLYS 92.8 %; RBC 4.59 mil/uL (4.20-5.00); RDW-CV 14.6 % (10.5-14.5); WBC 16.1 thou/uL (4.0-11.0)
[2021-03-07 05:12] LABS: BE 0.2 mmol/L (-2 to +3)
[2021-03-07 05:15] LABS: PCO2 89.9 mmHg (35.0-45.0); pH 7.166 (7.340-7.450)
[2021-03-07 05:31] LABS: ALBUMIN 3.2 g/dL (3.4-5.0); CALCIUM 8.5 mg/dL (8.5-10.1); CREATININE 1.2 mg/dL (0.6-1.3); MAGNESIUM 2.8 mg/dL (1.8-2.4); POTASSIUM 4.5 mmol/L (3.5-5.1); TOTAL BILIRUBIN 0.9 mg/dL (<0.1-1.0); TOTAL PROTEIN 6.4 g/dL (6.4-8.2)
--- NOTE | 2021-03-07 09:06 | EKG ---
[place] [address] ELECTROCARDIOGRAM REPORT Name: VALLEARMANI VIVIANA Room: [address] ADM IN .R.#: [id number] Admission: 02/21/21 Attend Phys: Chapin Santana Discharge: Date of : 61 Date of Service: 03/06/21 2316 Report #: [id number] THIS REPORT FOR: //name// [facility] Test Date: 2021-03-06 Test Time: 23:16:56 Pat Name: ARMANI VALLE Department: Room: [address] Gender: F Record Label Internship: MANDA : 1965 Requested By: Israel Gonzáles Order Number: [id number] Sherie MD: Ariel To Measurements Intervals [place] Rate: 45 P: 6 CA: 164 QRS: -26 QRSD: 105 T: -26 QT: 520 QTc: 450 Interpretive Statements Sinus bradycardia Probable anterior infarct, age indeterminate Lateral leads are also involved Compared to ECG 02/21/2021 17:41:51 Sinus tachycardia no longer present Left anterior fascicular block no longer present Myocardial infarct finding still present Electronically Signed On 03-07-2021 9:06:14 CDT by Ariel To [email or web address] <ELECTRONICALLY SIGNED> By: Ariel To MD, [facility] 03/07/21905 15 15 Ariel To MD, [facility] /EPI
[2021-03-07 13:22] LABS: pH 7.329 (7.340-7.450)
[2021-03-07 13:26] LABS: PCO2 59.3 mmHg (35.0-45.0)
[2021-03-08] VITALS (48 sets, daily range): BP systolic 91–136; BP diastolic 40–67
[2021-03-08 05:27] LABS: HEMATOCRIT 36.8 % (37.0-47.0); MCH 28.8 pg (26.0-34.0); MCHC 32.6 g/dL (28.0-37.0); MCV 88.4 fL (80.0-100.0); MPV 9.7 fl. (7.2-11.1); NUCLEATED RBCS 0 /100WBC; PLATELET COUNT* 86 thou/uL (150-400); RBC 4.16 mil/uL (4.20-5.00); RDW-CV 14.4 % (10.5-14.5); WBC 13.6 thou/uL (4.0-11.0)
[2021-03-08 05:52] LABS: ALBUMIN 3.1 g/dL (3.4-5.0); CALCIUM 8.4 mg/dL (8.5-10.1); CREATININE 1.2 mg/dL (0.6-1.3); MAGNESIUM 2.8 mg/dL (1.8-2.4); POTASSIUM 4.6 mmol/L (3.5-5.1); TOTAL BILIRUBIN 0.7 mg/dL (<0.1-1.0)
[2021-03-08 06:22] LABS: ABSOLUTE LYMPHOCYTES 0.3 thou/uL (0.8-5.3); ABSOLUTE MONOCYTES 1.1 thou/uL (0.0-1.2); ABSOLUTE NEUTROPHILS 12.2 thou/uL (1.6-8.1); ANISOCYTOSIS 1+; PLATELET ESTIMATE DECREASED; POIKILOCYTOSIS 1+
[2021-03-08 08:09] LABS: BE 7.3 mmol/L (-2 to +3); PO2 60.1 mmHg (75.0-100.0); pH 7.422 (7.340-7.450)
[2021-03-08 08:18] LABS: PCO2 52.1 mmHg (35.0-45.0)
--- NOTE | 2021-03-08 13:26 | NUR ---
ICU ROUNDS: PROGNOSIS IS POOR. PT ON 100 % FIO2. PEEP 11. SEDATED. LASIX. TUBE FEEDING, CXR AND ABDOMEN XRAY NEEDED D/T "TUBE CAME OUT."
[2021-03-08 14:14] LABS: BE 6.2 mmol/L (-2 to +3); PCO2 47.3 mmHg (35.0-45.0); pH 7.439 (7.340-7.450)
[2021-03-08 14:16] LABS: PO2 58.1 mmHg (75.0-100.0)
[2021-03-09] VITALS (39 sets, daily range): BP systolic 65–157; BP diastolic 34–78
[2021-03-09 05:56] LABS: MPV 9.4 fl. (7.2-11.1); NUCLEATED RBCS 0 /100WBC; WBC 9.4 thou/uL (4.0-11.0)
[2021-03-09 05:58] LABS: ABSOLUTE LYMPHOCYTES 0.4 thou/uL (0.8-5.3); ABSOLUTE MONOCYTES 0.4 thou/uL (0.0-1.2); ABSOLUTE NEUTROPHILS 8.5 thou/uL (1.6-8.1); BASOPHILS 0.5 %; EOSINOPHILS 0.1 %; HEMATOCRIT 35.8 % (37.0-47.0); HEMOGLOBIN 11.6 gm/dL (12.0-15.0); LYMPHOCYTES 3.8 %; MCH 28.7 pg (26.0-34.0); MCHC 32.3 g/dL (28.0-37.0); MCV 88.8 fL (80.0-100.0); MONOCYTES 4.7 %; PLATELET COUNT* 67 thou/uL (150-400); POLYS 90.9 %; RBC 4.03 mil/uL (4.20-5.00); RDW-CV 14.1 % (10.5-14.5)
[2021-03-09 06:15] LABS: ALBUMIN 3.3 g/dL (3.4-5.0); CALCIUM 8.5 mg/dL (8.5-10.1); CREATININE 1.1 mg/dL (0.6-1.3); MAGNESIUM 2.7 mg/dL (1.8-2.4); PHOSPHORUS* 4.3 mg/dL (2.5-4.9); POTASSIUM 4.7 mmol/L (3.5-5.1); TOTAL BILIRUBIN 0.7 mg/dL (<0.1-1.0); TOTAL PROTEIN 6.2 g/dL (6.4-8.2)
[2021-03-09 07:29] LABS: BE 6.5 mmol/L (-2 to +3); PCO2 44.1 mmHg (35.0-45.0); pH 7.465 (7.340-7.450)
[2021-03-09 07:32] LABS: PO2 49.3 mmHg (75.0-100.0)
--- NOTE | 2021-03-09 11:53 | NUR ---
RIGHT CHEST TUBE TO WATERSEAL PER ORDERS. PATIENT IS CURRENTLY WITH SATS IN THE LOW TO MID 80'S. DR PEREZ IS AWARE. FAMILY UPDATED. NO FURTHER CONCERNS ATTHIS TIME. ISOLATION DISCONTINUED PER ID NURSE. WILL CONTINUE TO MONITOR AND CARE PER PLAN OF CARE.
[2021-03-09 14:07] LABS: CALCIUM 8.9 mg/dL (8.5-10.1); CREATININE 1.3 mg/dL (0.6-1.3); POTASSIUM 4.8 mmol/L (3.5-5.1)
[2021-03-09 15:25] LABS: BE 6.8 mmol/L (-2 to +3); PO2 87.7 mmHg (75.0-100.0)
[2021-03-09 15:31] LABS: PCO2 72.5 mmHg (35.0-45.0)
[2021-03-10] VITALS (86 sets, daily range): BP systolic 77–206; BP diastolic 44–78
[2021-03-10 05:32] LABS: ABSOLUTE BASOPHILS 0.1 thou/uL (0.0-0.2); ABSOLUTE LYMPHOCYTES 0.3 thou/uL (0.8-5.3); ABSOLUTE MONOCYTES 0.9 thou/uL (0.0-1.2); BASOPHILS 0.4 %; HEMATOCRIT 39.3 % (37.0-47.0); HEMOGLOBIN 12.7 gm/dL (12.0-15.0); LYMPHOCYTES 2.3 %; MCH 28.8 pg (26.0-34.0); MCHC 32.2 g/dL (28.0-37.0); MCV 89.4 fL (80.0-100.0); MONOCYTES 6.6 %; MPV 10.2 fl. (7.2-11.1); NUCLEATED RBCS 0 /100WBC; PLATELET COUNT* 92 thou/uL (150-400); POLYS 90.7 %; RDW-CV 14.3 % (10.5-14.5); WBC 13.2 thou/uL (4.0-11.0)
[2021-03-10 05:52] LABS: ALBUMIN 3.3 g/dL (3.4-5.0); CREATININE 1.4 mg/dL (0.6-1.3); MAGNESIUM 2.9 mg/dL (1.8-2.4); PHOSPHORUS* 3.9 mg/dL (2.5-4.9); TOTAL BILIRUBIN 0.7 mg/dL (<0.1-1.0); TOTAL PROTEIN 6.2 g/dL (6.4-8.2)
[2021-03-10 08:21] LABS: PO2 82.6 mmHg (75.0-100.0); pH 7.343 (7.340-7.450)
[2021-03-10 08:24] LABS: PCO2 68.2 mmHg (35.0-45.0)
--- NOTE | 2021-03-10 15:05 | NUR ---
PLAN OF CARE: PHYSICIAN INFORMS PT REMAINS ON VENT 100% FIO2, AND REMAINS ICU STATUS. CM WILL CONTINUE TO FOLLOW AND ASSIST WITH CM D/C PLANNING NEEDED.
[2021-03-10 17:13] LABS: CALCIUM 8.7 mg/dL (8.5-10.1); CREATININE 1.2 mg/dL (0.6-1.3); MAGNESIUM 2.9 mg/dL (1.8-2.4); POTASSIUM 4.9 mmol/L (3.5-5.1)
[2021-03-11] VITALS (36 sets, daily range): BP systolic 79–130; BP diastolic 46–60
[2021-03-11 05:36] LABS: ABSOLUTE LYMPHOCYTES 0.3 thou/uL (0.8-5.3); ABSOLUTE MONOCYTES 1.1 thou/uL (0.0-1.2); ABSOLUTE NEUTROPHILS 16.7 thou/uL (1.6-8.1); BASOPHILS 0.2 %; HEMATOCRIT 38.2 % (37.0-47.0); HEMOGLOBIN 11.9 gm/dL (12.0-15.0); LYMPHOCYTES 1.9 %; MCH 28.4 pg (26.0-34.0); MCHC 31.2 g/dL (28.0-37.0); MCV 91.2 fL (80.0-100.0); MONOCYTES 6.1 %; MPV 9.8 fl. (7.2-11.1); NUCLEATED RBCS 0 /100WBC; PLATELET COUNT* 80 thou/uL (150-400); POLYS 91.8 %; RBC 4.19 mil/uL (4.20-5.00); RDW-CV 14.4 % (10.5-14.5); WBC 18.2 thou/uL (4.0-11.0)
[2021-03-11 06:06] LABS: ALBUMIN 3.1 g/dL (3.4-5.0); CALCIUM 8.9 mg/dL (8.5-10.1); CREATININE 1.2 mg/dL (0.6-1.3); MAGNESIUM 2.9 mg/dL (1.8-2.4); POTASSIUM 5.4 mmol/L (3.5-5.1); TOTAL BILIRUBIN 0.5 mg/dL (<0.1-1.0); TOTAL PROTEIN 5.7 g/dL (6.4-8.2)
[2021-03-11 09:17] LABS: BE 6.3 mmol/L (-2 to +3); PO2 96.1 mmHg (75.0-100.0); pH 7.305 (7.340-7.450)
[2021-03-11 09:20] LABS: PCO2 71.6 mmHg (35.0-45.0)
[2021-03-11 12:57] LABS: BE 7.1 mmol/L (-2 to +3); PO2 102.6 mmHg (75.0-100.0)
[2021-03-11 12:58] LABS: PCO2 55.1 mmHg (35.0-45.0)
[2021-03-11 13:12] LABS: URINE BILIRUBIN NEGATIVE (Negative); URINE BLOOD 3+ (Negative); URINE CLARITY CLEAR; URINE COLOR YELLOW; URINE GLUCOSE-RANDOM NEGATIVE (Negative); URINE KETONES NEGATIVE (Negative); URINE LEUKOCYTES-REFLEX NEGATIVE (Negative); URINE NITRITE-REFLEX NEGATIVE (Negative); URINE PROTEIN TRACE (Negative); URINE SPECIFIC GRAVITY 1.025 (1.005-1.030); URINE UROBILINOGEN 0.2 E.U./dl (0.2-1.0)
[2021-03-11 13:24] LABS: BACTERIA-REFLEX 1-9 Few /HPF (None Seen); HYALINE CASTS 0-3 Few /LPF (None Seen); MUCUS 0-3 Light strn/LPF (None Seen); SQUAMOUS 0-3 Few /LPF (0-3); URINE WBC-REFLEX 0-5 Rare /HPF (0-5)
[2021-03-11 13:25] LABS: COARSE GRANULAR CASTS 0-3 Few /LPF (None Seen); FINE GRANULAR CASTS 0-3 Few /LPF (None Seen); URIC ACID CRYSTALS 4-10 Moderate /LPF (None Seen)
--- NOTE | 2021-03-11 15:55 | NUR ---
ICU ROUNDS: PT DNR. VENT BTWN 95-100% PEEP 18. 2 CHEST TUBES. SEDATED.
[2021-03-12] VITALS (27 sets, daily range): BP systolic 92–171; BP diastolic 47–76
[2021-03-12 05:27] LABS: ABSOLUTE LYMPHOCYTES 0.4 thou/uL (0.8-5.3); ABSOLUTE MONOCYTES 1.2 thou/uL (0.0-1.2); ABSOLUTE NEUTROPHILS 13.3 thou/uL (1.6-8.1); BASOPHILS 0.2 %; HEMATOCRIT 33.8 % (37.0-47.0); HEMOGLOBIN 10.7 gm/dL (12.0-15.0); LYMPHOCYTES 2.8 %; MCH 28.7 pg (26.0-34.0); MCHC 31.7 g/dL (28.0-37.0); MCV 90.6 fL (80.0-100.0); MPV 9.3 fl. (7.2-11.1); NUCLEATED RBCS 0 /100WBC; PLATELET COUNT* 60 thou/uL (150-400); RBC 3.73 mil/uL (4.20-5.00); WBC 14.9 thou/uL (4.0-11.0)
[2021-03-12 05:45] LABS: ALBUMIN 2.7 g/dL (3.4-5.0); ALKALINE PHOSPHATASE 67 U/L (46-116); ANION GAP < 0 mmol/L (7-16); BUN 55 mg/dL (7-18); CALCIUM 8.7 mg/dL (8.5-10.1); CHLORIDE 106 mmol/L (98-107); CO2 37 mmol/L (21-32); CREATININE 0.9 mg/dL (0.6-1.3); GLUCOSE 305 mg/dL (70-99); MAGNESIUM 2.9 mg/dL (1.8-2.4); POTASSIUM 5.9 mmol/L (3.5-5.1); SGOT 41 U/L (15-37); SGPT 44 U/L (30-65); SODIUM 142 mmol/L (136-145); TOTAL BILIRUBIN 0.5 mg/dL (<0.1-1.0); TOTAL PROTEIN 5.5 g/dL (6.4-8.2)
[2021-03-12 08:30] LABS: BE 6.8 mmol/L (-2 to +3); PO2 103.1 mmHg (75.0-100.0); pH 7.311 (7.340-7.450)
[2021-03-12 08:40] LABS: PCO2 71.1 mmHg (35.0-45.0)
--- NOTE | 2021-03-12 12:48 | NUR ---
Case and plan of care reviewed with MD each weekday during patient's length of stay. Continue plan of care per MD orders for current dx. Pt remains on Vent 95% FiO2, IV pressors prn, TF, bilat chest tubes. CM will continue to follow.
[2021-03-12 15:16] LABS: BE 8.6 mmol/L (-2 to +3); PO2 65.3 mmHg (75.0-100.0); pH 7.385 (7.340-7.450)
[2021-03-12 15:21] LABS: PCO2 60.5 mmHg (35.0-45.0)
[2021-03-12 16:51] LABS: CALCIUM 8.9 mg/dL (8.5-10.1); CREATININE 0.9 mg/dL (0.6-1.3); MAGNESIUM 2.7 mg/dL (1.8-2.4); POTASSIUM 5.2 mmol/L (3.5-5.1)
[2021-03-12 17:24] LABS: HEMATOCRIT 30.6 % (37.0-47.0); HEMOGLOBIN 9.8 gm/dL (12.0-15.0); MCH 28.6 pg (26.0-34.0); MCHC 32.1 g/dL (28.0-37.0); MCV 89.2 fL (80.0-100.0); MPV 9.9 fl. (7.2-11.1); RBC 3.43 mil/uL (4.20-5.00); RDW-CV 13.7 % (10.5-14.5); WBC 14.7 thou/uL (4.0-11.0)
[2021-03-13] VITALS (88 sets, daily range): BP systolic 96–123; BP diastolic 46–59
--- NOTE | 2021-03-13 04:45 | NUR ---
ASSUMED CARE AT 1915H, ON VENT AT 90% AND TITRATED. ON VERSED AT 15MG/HR, PROPOFOL AT 20MICS, DILAUDED AT 2MG/HR AND INSULIN DRIP AT 7IU/HR. LEVO OFF AT 2100H. NO FEVER NOTED. RIGHT CHEST TUBE WATER SEALED AND LEFT ON SUCTION AT -40. PT NOT TOLERATING TURN, FIO2 UP TO 100%. CONTINUE MONITORING AND TOWARDS GOALS. INSULIN DRIP AT 9IU/HR.
[2021-03-13 07:23] LABS: HEMATOCRIT 28.4 % (37.0-47.0); HEMOGLOBIN 9.2 gm/dL (12.0-15.0); MCH 28.9 pg (26.0-34.0); MCHC 32.5 g/dL (28.0-37.0); MCV 88.8 fL (80.0-100.0); MPV 9.4 fl. (7.2-11.1); NUCLEATED RBCS 0 /100WBC; PLATELET COUNT* 50 thou/uL (150-400); RBC 3.19 mil/uL (4.20-5.00); RDW-CV 13.9 % (10.5-14.5)
[2021-03-13 07:27] LABS: ALBUMIN 2.8 g/dL (3.4-5.0); CALCIUM 8.9 mg/dL (8.5-10.1); CREATININE 0.8 mg/dL (0.6-1.3); MAGNESIUM 2.8 mg/dL (1.8-2.4); POTASSIUM 5.1 mmol/L (3.5-5.1); TOTAL BILIRUBIN 0.4 mg/dL (<0.1-1.0); TOTAL PROTEIN 5.4 g/dL (6.4-8.2)
[2021-03-13 07:45] LABS: BE 4.9 mmol/L (-2 to +3); PO2 61.2 mmHg (75.0-100.0); pH 7.386 (7.340-7.450)
[2021-03-13 08:00] LABS: PCO2 52.6 mmHg (35.0-45.0)
[2021-03-13 09:17] LABS: ABSOLUTE LYMPHOCYTES 0.6 thou/uL (0.8-5.3); ABSOLUTE MONOCYTES 0.2 thou/uL (0.0-1.2); ABSOLUTE NEUTROPHILS 11.2 thou/uL (1.6-8.1); PLATELET ESTIMATE DECREASED
[2021-03-13 09:18] LABS: ANISOCYTOSIS 1+; POIKILOCYTOSIS 1+
--- NOTE | 2021-03-13 18:59 | NUR ---
TOOK PATIENTS [place] WITH HIM TO HOME.
[2021-03-14] VITALS (87 sets, daily range): BP systolic 87–137; BP diastolic 42–67
[2021-03-14 05:21] LABS: BE 3.7 mmol/L (-2 to +3); PO2 78.3 mmHg (75.0-100.0); pH 7.309 (7.340-7.450)
[2021-03-14 05:22] LABS: PCO2 64.4 mmHg (35.0-45.0)
--- NOTE | 2021-03-14 05:22 | NUR ---
ASSUMED CARE AT 1900H, ON VENT AT 100% WITH 02 SAT OF 88-90%. STILL ON VERSED, DILAUDED AND PROPOFOL DRIP. ON ISULIN DRIP AND TITRATED. PT STILL NOT TOLERATING TURN AND STACKING BREATH, SEDATION INCREASED. NO BLEEDING AND NO FEVER NOTED. CONTINUE MONITORING AND TOWARDS GOALS. PROPOFOL AT 30MICS, VERSED AND DILAUDED AT MAX DOSE. O2 SAT 92%.
[2021-03-14 06:57] LABS: ABSOLUTE BASOPHILS 0.1 thou/uL (0.0-0.2); ABSOLUTE LYMPHOCYTES 0.6 thou/uL (0.8-5.3); ABSOLUTE MONOCYTES 1.1 thou/uL (0.0-1.2); ABSOLUTE NEUTROPHILS 13.8 thou/uL (1.6-8.1); BASOPHILS 0.6 %; HEMATOCRIT 28.1 % (37.0-47.0); HEMOGLOBIN 9.1 gm/dL (12.0-15.0); LYMPHOCYTES 3.8 %; MCH 29.1 pg (26.0-34.0); MCHC 32.3 g/dL (28.0-37.0); MCV 89.9 fL (80.0-100.0); MONOCYTES 7.1 %; NUCLEATED RBCS 0 /100WBC; PLATELET COUNT* 53 thou/uL (150-400); POLYS 88.5 %; RBC 3.13 mil/uL (4.20-5.00); RDW-CV 14.1 % (10.5-14.5); WBC 15.6 thou/uL (4.0-11.0)
[2021-03-14 07:24] LABS: ALBUMIN 2.6 g/dL (3.4-5.0); CALCIUM 8.6 mg/dL (8.5-10.1); CREATININE 0.8 mg/dL (0.6-1.3); MAGNESIUM 2.9 mg/dL (1.8-2.4); PHOSPHORUS* 4.2 mg/dL (2.5-4.9); POTASSIUM 5.5 mmol/L (3.5-5.1); TOTAL BILIRUBIN 0.4 mg/dL (<0.1-1.0); TOTAL PROTEIN 5.3 g/dL (6.4-8.2)
[2021-03-15] VITALS (26 sets, daily range): BP systolic 96–127; BP diastolic 52–68
[2021-03-15 04:06] LABS: ABSOLUTE LYMPHOCYTES 0.5 thou/uL (0.8-5.3); ABSOLUTE MONOCYTES 0.9 thou/uL (0.0-1.2); ABSOLUTE NEUTROPHILS 11.3 thou/uL (1.6-8.1); BASOPHILS 0.2 %; EOSINOPHILS 0.1 %; HEMATOCRIT 25.5 % (37.0-47.0); HEMOGLOBIN 8.1 gm/dL (12.0-15.0); LYMPHOCYTES 3.7 %; MCH 28.9 pg (26.0-34.0); MCHC 31.8 g/dL (28.0-37.0); MCV 90.9 fL (80.0-100.0); MONOCYTES 7.3 %; MPV 9.6 fl. (7.2-11.1); NUCLEATED RBCS 0 /100WBC; POLYS 88.7 %; RBC 2.81 mil/uL (4.20-5.00); RDW-CV 14.1 % (10.5-14.5); WBC 12.7 thou/uL (4.0-11.0)
--- NOTE | 2021-03-15 04:10 | NUR ---
ASSUMED CARE AT 1900H, ON VENT AT 100% WITH O2 SAT 0F 88-91%. STILL ON SEDATIONS AND INSULIN DRIP, TITRATED. NO BLEEDING AND WITH LOW GRADE FEVER EARLY IN MY SHIFT. STILL NOT TOLERATING TURN. CONTINUE MONITOING AND TOWARDS GOALS. PROPOFOL AT 40MICS, VERSED AND DILAUDED AT MAX DOSE. INSULIN DRIP AT 13IU/HR.
--- NOTE | 2021-03-15 04:14 | NUR ---
EARLY IN MY SHIFT, PT HAD HYPOGLYCEMIA DUE TO TUBE FEEDING WAS STOP IN DAYSHIFT. TUBE FEEDING RE-STARTED AND INSULIN OFF FOR 1HOUR.
[2021-03-15 04:25] LABS: ALBUMIN 2.7 g/dL (3.4-5.0); CALCIUM 8.5 mg/dL (8.5-10.1); CREATININE 0.7 mg/dL (0.6-1.3); MAGNESIUM 2.6 mg/dL (1.8-2.4); PHOSPHORUS* 3.5 mg/dL (2.5-4.9); POTASSIUM 5.1 mmol/L (3.5-5.1); TOTAL BILIRUBIN 0.3 mg/dL (<0.1-1.0); TOTAL PROTEIN 5.1 g/dL (6.4-8.2)
[2021-03-15 04:42] LABS: PLATELET COUNT* 44 thou/uL (150-400)
[2021-03-15 07:37] LABS: BE 10.6 mmol/L (-2 to +3); pH 7.367 (7.340-7.450)
[2021-03-15 07:40] LABS: PCO2 67.4 mmHg (35.0-45.0)
--- NOTE | 2021-03-15 18:52 | NUR ---
PATIENT SEDATED. NO BM THIS SHIFT. TRIED TO TURN THIS MORNING, DID NOT TOLERATE. PATIENT DESATS. CHANGED LEFT CHEST TUBE DRESSING DUE TO SATURATED AND NOT INTACT. UNABLE TO WEAN VET SETTINGS TODAY. 100% FIO2 PEEP 15. PATIENTS BROTHER, HILARY, VISITED TODAY.
[2021-03-16] VITALS (58 sets, daily range): BP systolic 82–136; BP diastolic 40–61
[2021-03-16 07:26] LABS: ABSOLUTE BASOPHILS 0.1 thou/uL (0.0-0.2); ABSOLUTE LYMPHOCYTES 0.6 thou/uL (0.8-5.3); ABSOLUTE MONOCYTES 0.7 thou/uL (0.0-1.2); ABSOLUTE NEUTROPHILS 10.7 thou/uL (1.6-8.1); BASOPHILS 0.7 %; EOSINOPHILS 0.1 %; HEMATOCRIT 25.6 % (37.0-47.0); HEMOGLOBIN 8.2 gm/dL (12.0-15.0); LYMPHOCYTES 4.6 %; MCH 29.2 pg (26.0-34.0); MCHC 31.9 g/dL (28.0-37.0); MCV 91.5 fL (80.0-100.0); MPV 11.5 fl. (7.2-11.1); NUCLEATED RBCS 0 /100WBC; POLYS 88.6 %; RDW-CV 14.6 % (10.5-14.5); WBC 12.1 thou/uL (4.0-11.0)
[2021-03-16 07:30] LABS: CREATININE 0.7 mg/dL (0.6-1.3)
[2021-03-16 07:33] LABS: PLATELET COUNT* 48 thou/uL (150-400)
[2021-03-16 07:34] LABS: POTASSIUM 6.2 mmol/L (3.5-5.1)
--- NOTE | 2021-03-16 09:23 | NUR ---
ICU ROUNDS: PT CONT ON VENT AT 100% PEEP 15. TF. CHEST TUBE. SEDATION.
[2021-03-16 12:18] LABS: ABSOLUTE BASOPHILS 0.1 thou/uL (0.0-0.2); ABSOLUTE LYMPHOCYTES 0.7 thou/uL (0.8-5.3); ABSOLUTE MONOCYTES 0.9 thou/uL (0.0-1.2); ABSOLUTE NEUTROPHILS 11.3 thou/uL (1.6-8.1); BASOPHILS 0.7 %; EOSINOPHILS 0.1 %; HEMATOCRIT 24.9 % (37.0-47.0); HEMOGLOBIN 8.3 gm/dL (12.0-15.0); MCH 29.9 pg (26.0-34.0); MCHC 33.2 g/dL (28.0-37.0); MCV 90.2 fL (80.0-100.0); MPV 8.9 fl. (7.2-11.1); NUCLEATED RBCS 0 /100WBC; PLATELET COUNT* 51 thou/uL (150-400); POLYS 87.2 %; RBC 2.76 mil/uL (4.20-5.00)
--- NOTE | 2021-03-16 13:16 | NUR ---
CM FAXED REFERRALS TO [facility] [phone], [facility] [phone], AND [facility] [phone].
[2021-03-16 13:45] LABS: BE 5.7 mmol/L (-2 to +3); PO2 67.3 mmHg (75.0-100.0); pH 7.324 (7.340-7.450)
[2021-03-16 13:48] LABS: PCO2 64.7 mmHg (35.0-45.0)
--- NOTE | 2021-03-16 14:44 | NUR ---
WOUND NURSE: PATIENT SEEN TO ADDRESS SACROCOCCYGEAL STAGE 2 PRESSURE INJURY. UNABLE TO MEASURE WOUND DUE TO NEED FOR FAST DRESSING CHANGE PATIENT DESATURATES QUICKLY. PRESENTS A LINEAR LESION WITH PARTIAL THICKNESS TISSUE LOSS CONTAINING RED, NONGRANULATING TISSUE IN THE WOUND BED AND SMALL AMOUNT OF SEROUSANGUINOUS DRAINAGE. CLEANSED WITH SOAP AND WATER, RINSED, THEN PATTED DRY. APPLIED EXUDERM SATIN (CUT TO FIT), THEN SECURED WITH SURESITE TRANSPARENT DRESSING. PATIENT IS NOT RESPONSIVE.
[2021-03-17] VITALS (56 sets, daily range): BP systolic 96–169; BP diastolic 39–162
--- NOTE | 2021-03-17 04:07 | NUR ---
ASSUMED CARE AT 1900H, ON VENT AT 100% WITH O2 SAT OF 90-92%. STILL ON SEDATION AT MAX DOSE. ON LEVO DRIP AND OFF ARROUND 0230H. NO FEVER AND DISTRESS NOTED. PT TOLERATED TURN. CONTINUE MONITORING AND TOWARDS GOALS. INSULIN DRIP AT 10IU/HR.
[2021-03-17 05:55] LABS: HEMOGLOBIN 7.9 gm/dL (12.0-15.0); MCHC 32.7 g/dL (28.0-37.0); NUCLEATED RBCS 0 /100WBC; WBC 9.8 thou/uL (4.0-11.0)
[2021-03-17 06:01] LABS: HEMATOCRIT 24.1 % (37.0-47.0); MCH 29.6 pg (26.0-34.0); MCV 90.7 fL (80.0-100.0); MPV 9.1 fl. (7.2-11.1); PLATELET COUNT* 50 thou/uL (150-400); RBC 2.66 mil/uL (4.20-5.00); RDW-CV 14.5 % (10.5-14.5)
[2021-03-17 06:07] LABS: ALBUMIN 2.8 g/dL (3.4-5.0); CALCIUM 8.7 mg/dL (8.5-10.1); CREATININE 0.5 mg/dL (0.6-1.3); MAGNESIUM 2.7 mg/dL (1.8-2.4); POTASSIUM 4.9 mmol/L (3.5-5.1); TOTAL BILIRUBIN 0.4 mg/dL (<0.1-1.0); TOTAL PROTEIN 5.4 g/dL (6.4-8.2)
[2021-03-17 06:29] LABS: PHOSPHORUS* 4.3 mg/dL (2.5-4.9)
[2021-03-17 06:37] LABS: ABSOLUTE EOSINOPHILS 0.1 thou/uL (0.0-0.7); ABSOLUTE LYMPHOCYTES 0.8 thou/uL (0.8-5.3); ABSOLUTE MONOCYTES 0.4 thou/uL (0.0-1.2); ABSOLUTE NEUTROPHILS 8.5 thou/uL (1.6-8.1); ATYPICAL LYMPHS 2 %; METAMYELOCYTES 2 %; PLATELET ESTIMATE DECREASED
[2021-03-17 07:39] LABS: BE 9.7 mmol/L (-2 to +3); PO2 72.3 mmHg (75.0-100.0); pH 7.377 (7.340-7.450)
[2021-03-17 07:42] LABS: PCO2 63.1 mmHg (35.0-45.0)
--- NOTE | 2021-03-17 12:40 | NUR ---
Case and plan of care reviewed with MD each weekday during patient's length of stay. Continue plan of care per MD orders for current dx. pt remains on Vent 100 FiO2. IV sed and insulin gtt. Chest on R dc'd 03/16. CM will continue to follow for discharge planning needs. LTACs are now following.
[2021-03-17 18:12] LABS: CALCIUM 8.9 mg/dL (8.5-10.1); CREATININE 0.6 mg/dL (0.6-1.3); MAGNESIUM 2.6 mg/dL (1.8-2.4); POTASSIUM 4.6 mmol/L (3.5-5.1)
--- NOTE | 2021-03-17 20:21 | NUR ---
VENT SETTINGS UNCHANGED, FIO2 100% ALL DAY. PRECEDEX STARTED TO TRY AND WEAN OFF PROPOFOL GTT. HIGH RESIDUALS ON TUBE FEEDS, DR PEREZ AWARE, RATE DECREASED TO 20 AT 1200, REGLAN GIVEN PER ORDERS. TOLERATES LT SIDE BETTER THAN RT, O2 SATS DROPS TO HIGH 90s ON RT SIDE. SISTER, REGGIE UPDATED OVER THE PHONE.
[2021-03-18] VITALS (23 sets, daily range): BP systolic 90–144; BP diastolic 51–71
--- NOTE | 2021-03-18 03:57 | NUR ---
ASSUMED CARE AT 1900H ON VENT AT 100% WITH SAT 0F 91-95%. PROPOFOL STOP EARLY IN MY SHIFT. SEDATIONS TITRATED. NO BLEEDING AND NO FEVER NOTED. PT TOLERATED WELL WHEN TURNED TO LEFT SIDE. STILL WITH HIGH RESIDUAL FROM OG, FEEDING HOLD AND RE-STARTED AT MIDNIGHT. CONTINUE MONITORING AND TOWARDS GOALS. DILAUDED AT 12MG/HR, PRECEDEX AND VERSED AT MAX DOSE. INSULIN DRIP AT 9IU/HR
[2021-03-18 06:26] LABS: ABSOLUTE LYMPHOCYTES 0.4 thou/uL (0.8-5.3); ABSOLUTE MONOCYTES 0.4 thou/uL (0.0-1.2); ABSOLUTE NEUTROPHILS 5.2 thou/uL (1.6-8.1); BASOPHILS 0.1 %; EOSINOPHILS 0.2 %; HEMATOCRIT 24.6 % (37.0-47.0); HEMOGLOBIN 8.1 gm/dL (12.0-15.0); LYMPHOCYTES 6.5 %; MCH 29.3 pg (26.0-34.0); MCHC 32.8 g/dL (28.0-37.0); MCV 89.3 fL (80.0-100.0); MONOCYTES 6.3 %; MPV 9.1 fl. (7.2-11.1); NUCLEATED RBCS 1 /100WBC; POLYS 86.9 %; RBC 2.76 mil/uL (4.20-5.00); RDW-CV 14.3 % (10.5-14.5); WBC 5.9 thou/uL (4.0-11.0)
[2021-03-18 06:35] LABS: PLATELET COUNT* 43 thou/uL (150-400)
[2021-03-18 06:58] LABS: ALBUMIN 3.3 g/dL (3.4-5.0); CALCIUM 8.4 mg/dL (8.5-10.1); CREATININE 0.5 mg/dL (0.6-1.3); MAGNESIUM 2.4 mg/dL (1.8-2.4); POTASSIUM 3.9 mmol/L (3.5-5.1); TOTAL BILIRUBIN 0.6 mg/dL (<0.1-1.0); TOTAL PROTEIN 5.9 g/dL (6.4-8.2)
[2021-03-18 08:03] LABS: BE 13.8 mmol/L (-2 to +3); PO2 62.9 mmHg (75.0-100.0)
[2021-03-18 08:15] LABS: PCO2 55.1 mmHg (35.0-45.0)
[2021-03-18 13:11] LABS: URINE BILIRUBIN NEGATIVE (Negative); URINE BLOOD 3+ (Negative); URINE CLARITY CLEAR; URINE COLOR YELLOW; URINE GLUCOSE-RANDOM NEGATIVE (Negative); URINE KETONES NEGATIVE (Negative); URINE LEUKOCYTES NEGATIVE (Negative); URINE NITRITE NEGATIVE (Negative); URINE PROTEIN 1+ (Negative); URINE SPECIFIC GRAVITY >= 1.030 (1.005-1.030); URINE UROBILINOGEN 0.2 E.U./dl (0.2-1.0)
[2021-03-18 13:19] LABS: SQUAMOUS NONE SEEN /LPF (0-3)
[2021-03-18 13:20] LABS: BACTERIA 1-9 Few /HPF (None Seen); CASTS None Seen /LPF (None Seen); URINE RBC 3-10 Few /HPF (0-2); URINE WBC None Seen /HPF (0-5)
[2021-03-18 13:21] LABS: CRYSTALS None Seen /LPF (None Seen)
[2021-03-18 13:22] LABS: YEAST Present (None Seen)
[2021-03-18 17:11] LABS: BE 11.7 mmol/L (-2 to +3); PO2 66.2 mmHg (75.0-100.0); pH 7.435 (7.340-7.450)
[2021-03-18 17:16] LABS: PCO2 57.3 mmHg (35.0-45.0)
[2021-03-18 17:26] LABS: CALCIUM 8.7 mg/dL (8.5-10.1); CREATININE 0.5 mg/dL (0.6-1.3); MAGNESIUM 2.3 mg/dL (1.8-2.4); POTASSIUM 4.6 mmol/L (3.5-5.1)
[2021-03-19] VITALS (47 sets, daily range): BP systolic 96–132; BP diastolic 41–68
[2021-03-19 04:29] LABS: HEMATOCRIT 25.9 % (37.0-47.0); HEMOGLOBIN 8.7 gm/dL (12.0-15.0); MCH 30.4 pg (26.0-34.0); MCHC 33.6 g/dL (28.0-37.0); MCV 90.5 fL (80.0-100.0); MPV 9.7 fl. (7.2-11.1); RBC 2.86 mil/uL (4.20-5.00); RDW-CV 14.9 % (10.5-14.5); WBC 9.6 thou/uL (4.0-11.0)
[2021-03-19 04:54] LABS: CALCIUM 8.6 mg/dL (8.5-10.1); CREATININE 0.6 mg/dL (0.6-1.3); POTASSIUM 4.6 mmol/L (3.5-5.1)
--- NOTE | 2021-03-19 09:40 | NUR ---
ICU ROUNDS: PT CONT ON VENT AT 100 % & REMAINS SEDATED. INSULIN GTT. IV STERIODS. LTACS ARE FOLLOWING. VIVEK W/DAVON INDICATED THEY ARE AT [facility] WITH BEDS ALLOWED FOR PT'S INSUR PROVIDER AT THIS TIME.
--- NOTE | 2021-03-19 13:17 | NUR ---
[facility] email stating Helen Zambrano, sister of pt, needing to speak to CM. Stated she had left two messages which were not received by CM. called her at [phone] and left my work cell # to call back at her convenience.
[2021-03-19 15:06] LABS: HEMATOCRIT 26.6 % (37.0-47.0); HEMOGLOBIN 8.7 gm/dL (12.0-15.0); MCH 29.6 pg (26.0-34.0); MCHC 32.8 g/dL (28.0-37.0); MCV 90.4 fL (80.0-100.0); MPV 9.2 fl. (7.2-11.1); NUCLEATED RBCS 1 /100WBC; PLATELET COUNT* 51 thou/uL (150-400); RBC 2.94 mil/uL (4.20-5.00); RDW-CV 14.9 % (10.5-14.5); WBC 7.9 thou/uL (4.0-11.0)
[2021-03-19 15:25] LABS: BE 11.2 mmol/L (-2 to +3); pH 7.415 (7.340-7.450)
[2021-03-19 15:29] LABS: PCO2 60.2 mmHg (35.0-45.0)
[2021-03-19 15:30] LABS: PO2 57.3 mmHg (75.0-100.0)
[2021-03-19 15:38] LABS: ALBUMIN 2.5 g/dL (3.4-5.0); CREATININE 0.5 mg/dL (0.6-1.3); MAGNESIUM 2.3 mg/dL (1.8-2.4); POTASSIUM 4.9 mmol/L (3.5-5.1); TOTAL BILIRUBIN 0.6 mg/dL (<0.1-1.0); TOTAL PROTEIN 5.1 g/dL (6.4-8.2)
[2021-03-19 15:54] LABS: ABSOLUTE LYMPHOCYTES 0.9 thou/uL (0.8-5.3); ABSOLUTE MONOCYTES 0.5 thou/uL (0.0-1.2); ABSOLUTE NEUTROPHILS 6.6 thou/uL (1.6-8.1); PLATELET ESTIMATE DECREASED
[2021-03-19 15:55] LABS: HYPOCHROMASIA 1+; POLYCHROMASIA Occasional
[2021-03-20] VITALS (47 sets, daily range): BP systolic 77–118; BP diastolic 40–68
[2021-03-20 04:06] LABS: ABSOLUTE LYMPHOCYTES 0.4 thou/uL (0.8-5.3); ABSOLUTE MONOCYTES 0.4 thou/uL (0.0-1.2); ABSOLUTE NEUTROPHILS 7.6 thou/uL (1.6-8.1); BASOPHILS 0.1 %; EOSINOPHILS 0.4 %; HEMATOCRIT 26.1 % (37.0-47.0); HEMOGLOBIN 8.6 gm/dL (12.0-15.0); LYMPHOCYTES 5.1 %; MCH 29.8 pg (26.0-34.0); MCHC 32.7 g/dL (28.0-37.0); MONOCYTES 4.6 %; MPV 9.9 fl. (7.2-11.1); NUCLEATED RBCS 1 /100WBC; PLATELET COUNT* 50 thou/uL (150-400); POLYS 89.8 %; RBC 2.87 mil/uL (4.20-5.00); WBC 8.5 thou/uL (4.0-11.0)
[2021-03-20 04:17] LABS: ALBUMIN 2.8 g/dL (3.4-5.0); CALCIUM 8.2 mg/dL (8.5-10.1); CREATININE 0.4 mg/dL (0.6-1.3); MAGNESIUM 2.4 mg/dL (1.8-2.4); POTASSIUM 4.5 mmol/L (3.5-5.1); TOTAL BILIRUBIN 0.8 mg/dL (<0.1-1.0); TOTAL PROTEIN 5.4 g/dL (6.4-8.2)
[2021-03-20 04:24] LABS: PHOSPHORUS* 3.2 mg/dL (2.5-4.9)
[2021-03-20 08:05] LABS: BE 10.7 mmol/L (-2 to +3); PO2 63.4 mmHg (75.0-100.0)
[2021-03-20 08:07] LABS: PCO2 61.4 mmHg (35.0-45.0)
[2021-03-21] VITALS (67 sets, daily range): BP systolic 74–171; BP diastolic 37–74
[2021-03-21 00:56] LABS: BE 5.1 mmol/L (-2 to +3)
[2021-03-21 01:05] LABS: PCO2 66.8 mmHg (35.0-45.0); PO2 48.3 mmHg (75.0-100.0)
[2021-03-21 05:46] LABS: ABSOLUTE EOSINOPHILS 0.1 thou/uL (0.0-0.7); ABSOLUTE LYMPHOCYTES 0.5 thou/uL (0.8-5.3); ABSOLUTE MONOCYTES 0.4 thou/uL (0.0-1.2); ABSOLUTE NEUTROPHILS 7.7 thou/uL (1.6-8.1); BASOPHILS 0.2 %; HEMATOCRIT 25.1 % (37.0-47.0); HEMOGLOBIN 8.2 gm/dL (12.0-15.0); LYMPHOCYTES 5.6 %; MCH 30.3 pg (26.0-34.0); MCHC 32.9 g/dL (28.0-37.0); MCV 92.3 fL (80.0-100.0); MONOCYTES 4.4 %; MPV 9.6 fl. (7.2-11.1); NUCLEATED RBCS 0 /100WBC; PLATELET COUNT* 53 thou/uL (150-400); POLYS 88.8 %; RBC 2.72 mil/uL (4.20-5.00); RDW-CV 15.2 % (10.5-14.5); WBC 8.7 thou/uL (4.0-11.0)
[2021-03-21 06:01] LABS: ALBUMIN 2.9 g/dL (3.4-5.0); CALCIUM 8.3 mg/dL (8.5-10.1); CREATININE 0.6 mg/dL (0.6-1.3); MAGNESIUM 2.4 mg/dL (1.8-2.4); POTASSIUM 3.9 mmol/L (3.5-5.1); TOTAL BILIRUBIN 0.7 mg/dL (<0.1-1.0); TOTAL PROTEIN 5.2 g/dL (6.4-8.2)
[2021-03-21 09:14] LABS: BE 8.2 mmol/L (-2 to +3); PO2 60.5 mmHg (75.0-100.0); pH 7.348 (7.340-7.450)
[2021-03-21 09:16] LABS: PCO2 65.7 mmHg (35.0-45.0)
--- NOTE | 2021-03-21 18:31 | NUR ---
PT SATTING AT LOW 80s TO HIGH 70s THIS AM, DR VIDAL DISCUSSED WITH FAMILY MEMBERS IN THE ROOM REGARDING CODE STATUS. FAMILY WANTS HER TO BE FULL CODE BUT IN CASE SHE CODES, THEY ONLY WANT US TO TRY FOR 10 MINS. PEEP INCREASED TO 16. POST UNPRONING, O2 SATS SLOWLY CAME UP, CURRENTLY AT 92-93%. SEDATION AND VENT SETTINGS UNCHANGED. TOLERATING TURNS. MILD AIR LEAK AT LT CHEST TUBE, WHICH IS AT -20 SUCTION.
[2021-03-22] VITALS (59 sets, daily range): BP systolic 45–139; BP diastolic 21–68
--- NOTE | 2021-03-22 05:39 | NUR ---
PT'S ARTERIAL LINE DISLODGED DURING DRESSING CHANGE AT 2340. PRESSURE HELD X 20 MINUTES. HEMOSTASIS ACHIEVED AT 0000.
[2021-03-22 05:53] LABS: HEMATOCRIT 26.6 % (37.0-47.0); HEMOGLOBIN 8.3 gm/dL (12.0-15.0); MCH 28.8 pg (26.0-34.0); MCHC 31.3 g/dL (28.0-37.0); MPV 8.3 fl. (7.2-11.1); RBC 2.9 mil/uL (4.20-5.00); RDW-CV 15.6 % (10.5-14.5); WBC 10.1 thou/uL (4.0-11.0)
[2021-03-22 06:14] LABS: CALCIUM 8.4 mg/dL (8.5-10.1); CREATININE 0.4 mg/dL (0.6-1.3); POTASSIUM 4.3 mmol/L (3.5-5.1)
--- NOTE | 2021-03-22 06:29 | NUR ---
pt's blood pressure dropped to 50/20 range. levophed titrated. family ntified. nursing supervisor pastry spoke with pt's . dr Santana notified. crash cart in room, combo pads placed
--- NOTE | 2021-03-22 06:34 | NUR ---
blood pressure at this time 129/57, pulse 101, O2 sat 59%
--- NOTE | 2021-03-22 08:54 | NUR ---
Case and plan of care reviewed with MD each weekday during patient's length of stay. Continue plan of care per MD orders for current dx. Remains on Vent 100% FiO2 IV sedation and pressors. Left Chest Tube. CM will continue to follow for discharge planning needs. LTACs x3 referrals sent 03/16/21. They are following.
[2021-03-23] VITALS (63 sets, daily range): BP systolic 78–120; BP diastolic 35–80
--- NOTE | 2021-03-23 04:44 | NUR ---
ASSUMED CARE AT 1900H, ON VENT AT 100% WITH O2 SAT 0F 73%. STILL SEDATED MAX DOSE AND ON LEVO AT 10MICS AND TITRATED. PT WAS UNSTABLE TO TURN. TEMP AT 103 AND DECREASED URINE OUTPUT. HIMS AWARE WITH ORDERS MADE AND CARRIED OUT. CONTINUE MONITORING AND TOWARDS GOALS. LEVO AT 6MICS AND INSULIN AT 3IU/HR. FAMILY PLANNING/TO DECIDE TO WITHRAW CARE.
[2021-03-23 05:46] LABS: HEMATOCRIT 29.8 % (37.0-47.0); HEMOGLOBIN 9.3 gm/dL (12.0-15.0); MCH 29.7 pg (26.0-34.0); MCHC 31.2 g/dL (28.0-37.0); MCV 95.2 fL (80.0-100.0); MPV 9.5 fl. (7.2-11.1); NUCLEATED RBCS 6 /100WBC; PLATELET COUNT* 88 thou/uL (150-400); RBC 3.13 mil/uL (4.20-5.00); RDW-CV 16.7 % (10.5-14.5); WBC 20.4 thou/uL (4.0-11.0)
[2021-03-23 06:24] LABS: ABSOLUTE EOSINOPHILS 0.4 thou/uL (0.0-0.7); ABSOLUTE LYMPHOCYTES 2.9 thou/uL (0.8-5.3); ABSOLUTE MONOCYTES 1.6 thou/uL (0.0-1.2); ABSOLUTE NEUTROPHILS 15.5 thou/uL (1.6-8.1); PLATELET ESTIMATE DECREASED
[2021-03-23 06:25] LABS: ANISOCYTOSIS 1+; POIKILOCYTOSIS 1+; TOXIC GRANULATION Occasional
--- NOTE | 2021-03-23 13:54 | NUR ---
Case and plan of care reviewed with MD each weekday during patient's length of stay. Continue plan of care per MD orders for current dx. Remains on vent 100%fiO2, IV pressors, IV Sedation. left chest tube 03/06 R chest tube dc 03/16/21. Insulin gtt. increasing pressors more often today, Fever today. CM will continue to follow for DC planning needs. LTACs following-referrals started 03/16/21. No DPOA on chart, pt declined educ/info at time of admission.
--- NOTE | 2021-03-23 16:11 | NUR ---
WOUND NURSE: PLANNED TO SEE PT TODAY, BUT NURSE ARANGO REPORTS PATIENT HAS .
--- NOTE | 2021-03-23 17:04 | NUR ---
pt and family went comfort care withdrawaling all care from pt. pt at 1541 all paperwork complete home pending awaiting on family decision all belongings are being sent with home
== END 2021-03-23 15:41 | DRG 207 ==
LOC: M.ERS 16:02 → M.TBA-ER 18:08 → M.ORTHSURG 18:08 → M.ICU 18:08 → M.ORTHSURG 02-23 11:08 → M.ICU 03-05 19:10
PROVIDERS: Emergency Medicine Emergency Medical Services; Family Medicine; Internal Medicine; Internal Medicine Critical Care Medicine; Pediatrics; Surgery; ADMIT Internal Medicine; ATTEND Internal Medicine
DX: U07.1 COVID-19 (principal); J12.82 Pneumonia due to coronavirus disease 2019; J80 Acute respiratory distress syndrome; J93.9 Pneumothorax, unspecified; E46 Unspecified protein-calorie malnutrition; E87.0 Hyperosmolality and hypernatremia; Z68.43 Body mass index [BMI] 50.0-59.9, adult; E11.9 Type 2 diabetes mellitus without complications; E87.70 Fluid overload, unspecified; E66.01 Morbid (severe) obesity due to excess calories; J98.2 Interstitial emphysema; E87.5 Hyperkalemia; D69.6 Thrombocytopenia, unspecified; D64.9 Anemia, unspecified; Z51.5 Encounter for palliative care; Z66 Do not resuscitate; Z86.718 Personal history of other venous thrombosis and embolism; Z85.42 Personal history of malignant neoplasm of other parts of uterus; Z90.710 Acquired absence of both cervix and uterus; Z79.4 Long term (current) use of insulin